=== PATIENT | female | born 1985 ===

== ENCOUNTER 2019-08-08 15:27 | Outpatient (CLI) | payer OTHER ==
[~2019-08-08] VITALS: Ht 157.5 cm; Wt 93.6 kg
[2019-08-08 16:07] LABS: PROTEIN/CREATININE RATIO,URINE < 242 (0-200); TOTAL PROTEIN,URINE RANDOM < 5 mg/dL (0-12)
[2019-08-08 16:25] LABS: BASOPHILS # (AUTO) 0.05 x10^3/uL (0-0.1); BASOPHILS % (AUTO) 1 % (0-1); EOSINOPHILS # (AUTO) 0.09 x10^3/uL (0-0.4); EOSINOPHILS % (AUTO) 1 % (1-7); LYMPHOCYTES # (AUTO) 1.97 x10^3/uL (1-3.4); LYMPHOCYTES % (AUTO) 21 % (22-44); MD NO; MEAN CORPUSCULAR HEMOGLOBIN 29.3 pg (27.0-34.8); MEAN CORPUSCULAR HGB CONC 33.2 g/dL (32.4-35.8); MEAN CORPUSCULAR VOLUME 88.4 fL (80-100); MEAN PLATELET VOLUME 8.9 fL (7.4-10.4); MONOCYTES # (AUTO) 0.64 x10^3/uL (0.2-0.8); MONOCYTES % (AUTO) 7 % (2-9); NEUTROPHILS # (AUTO) 6.56 x10^3/uL (1.8-6.8); NEUTROPHILS % (AUTO) 71 % (42-75); PLATELET COUNT 264 x10^3/uL (130-400); RED BLOOD COUNT 4.61 x10^6/uL (3.82-5.3); RED CELL DISTRIBUTION WIDTH 15.2 % (9.6-15.2)
[2019-08-08 16:32] LABS: ALANINE AMINOTRANSFERASE 18 U/L (12-78); ALBUMIN 2.5 g/dL (3.4-5.0); ANION GAP 8 mmol/L (5-15); CALCIUM 8.6 mg/dL (8.5-10.1); CHLORIDE 111 mmol/L (98-107); CREATININE 0.99 mg/dL (0.55-1.02)
[2019-08-08 16:34] LABS: ALKALINE PHOSPHATASE 152 U/L (45-117); BILIRUBIN,TOTAL 0.2 mg/dL (0.2-1.0); TOTAL PROTEIN 6.8 g/dL (6.4-8.2)
[2019-08-08 16:40] LABS: BILIRUBIN, DIRECT < 0.1 mg/dL (0.1-0.2)
[2019-08-08 17:03] LABS: MICROSCOPIC NOT IND
== END 2019-08-08 17:00 | disposition home or self-care (01) ==
LOC: LDOP 15:27
PROVIDERS: ATTEND Obstetrics & Gynecology
DX: O13.3 Gestational [pregnancy-induced] hypertension without significant proteinuria, third trimester (principal); Z3A.38 38 weeks gestation of pregnancy
CPT/HCPCS: 36415; 59025; 80053; 81003; 82248; 82570; 84156; 84550; 85025; 99211; G0463

== ENCOUNTER 2019-08-09 06:16 | Inpatient (IN) | payer OTHER ==
[~2019-08-09] VITALS: Ht 157.5 cm; Wt 93.4 kg
[2019-08-09 04:26] VITALS: BP 119/76
[2019-08-09] MEDS ORDERED: LACTATED RINGERS 1,000 ML IV SCH (06:24)
[2019-08-09] MEDS ORDERED: METOCLOPRAMIDE 5 MG/ML, 2ML IV ONE (06:30)
[2019-08-09] MEDS ORDERED: SODIUM CITRATE/CITRIC ACID 30 ML UDC PO ONE (06:30)
[2019-08-09] MEDS ORDERED: LACTATED RINGERS 1,000 ML IVBOLUS ONE (06:30)
[2019-08-09] MEDS ORDERED: OXYTOCIN 30U/ 0.9% NaCL 500ML 500 ML ONE ×2 (06:42→10:00)
[2019-08-09] MEDS ORDERED: METOCLOPRAMIDE 5 MG/ML, 2ML ONE (06:47)
[2019-08-09] MEDS ORDERED: SODIUM CITRATE/CITRIC ACID 30 ML UDC ONE (06:47)
[2019-08-09] MEDS ORDERED: NEWBORN KIT ONE (06:47)
[2019-08-09] MEDS ORDERED: FENTANYL PF 100 MCG/2ML ONE ×3 (06:58→09:13)
[2019-08-09] MEDS ORDERED: ONDANSETRON 2MG/ML, 2ML IVPush PRN (07:00)
[2019-08-09] MEDS ORDERED: hydrALAzine 20 MG/ML, 1ML IV PRN (07:00)
[2019-08-09] MEDS ORDERED: HYDROcodone/APAP 7.5-325MG/15ML UDC PO PRN (07:00)
[2019-08-09] MEDS ORDERED: PROMETHAZINE 25 MG/ML, 1ML IV PRN (07:00)
[2019-08-09] MEDS ORDERED: METOPROLOL 1 MG/ML, 5ML IV PRN (07:00)
[2019-08-09] MEDS ORDERED: EPHEDRINE 50 MG/ML, 1ML IVPush PRN (07:00)
[2019-08-09] MEDS ORDERED: HYDROmorphone 2 MG/ML, 1ML IVPush PRN (07:00)
[2019-08-09] MEDS ORDERED: OXYcodone 5 MG/5 ML ORAL.SOL UDC PO PRN (07:00)
[2019-08-09] MEDS ORDERED: MEPERIDINE/PF 25MG/0.5ML IVPush PRN (07:00)
[2019-08-09] MEDS ORDERED: ALBUTEROL SULFATE 2.5 MG/3 ML NPPB PRN (07:00)
[2019-08-09] MEDS ORDERED: LABETALOL 5MG/ML, 20ML IV PRN (07:00)
[2019-08-09] MEDS ORDERED: SUCCINYLCHOLINE 20 MG/ML, 10ML ONE (07:19)
[2019-08-09] MEDS ORDERED: CEFAZOLIN 1,000 MG ONE (08:10)
[2019-08-09] MEDS ORDERED: OXYTOCIN 10 UNITS/ML, 1ML ONE ×2 (08:10→08:18)
[2019-08-09] MEDS ORDERED: EPINEPHRINE 1 MG/ML, 1ML ONE (08:10)
[2019-08-09] MEDS ORDERED: PROPOFOL 10 MG/ML, 20ML ONE (08:16)
[2019-08-09] MEDS: LACTATED RINGERS 1,000 ML IV SCH ×4 (08:42→18:42)
[2019-08-09] MEDS ORDERED: ONDANSETRON 2MG/ML, 2ML IV PRN (09:00)
[2019-08-09] MEDS ORDERED: OXYcodone IR 5MG TABLET PO PRN (09:00)
[2019-08-09] MEDS ORDERED: SIMETHICONE 80 MG CHEW TAB PO PRN (09:00)
[2019-08-09] MEDS ORDERED: CALCIUM CARBONATE 500 MG TAB.CHEW PO PRN (09:00)
[2019-08-09] MEDS: PRENATAL VIT/IRON/FA 1 EACH TABLET PO SCH (09:00)
[2019-08-09] MEDS ORDERED: MORPHINE SULFATE 4 MG/ML, 1ML IVPush PRN (09:00)
[2019-08-09] MEDS ORDERED: MISOPROSTOL 200 MCG TABLET PR PRN (09:00)
[2019-08-09] MEDS: FENTANYL PF 100 MCG/2ML IV PRN ×2 (09:18→09:27)
[2019-08-09] MEDS ORDERED: HYDROcodone/APAP 7.5-325MG/15ML UDC ONE (09:45)
[2019-08-09] MEDS: PLEASE ENTER HEIGHT AND WEIGHT MC SCH ×2 (10:00→18:00)
[2019-08-09] MEDS: OXYTOCIN 30U/ 0.9% NaCL 500ML 500 ML IV SCH ×2 (10:19→18:42)
[2019-08-09 10:30] VITALS: BP 112/72
[2019-08-09] MEDS ORDERED: PLEASE ENTER HEIGHT AND WEIGHT MC SCH (11:00)
[2019-08-09] MEDS: KETOROLAC 30 MG/1 ML IV SCH ×3 (15:28→21:05)
[2019-08-09 15:55] VITALS: BP 104/69
[2019-08-09 16:59] LABS: BASOPHILS # (AUTO) 0.05 x10^3/uL (0-0.1); BASOPHILS % (AUTO) 0 % (0-1); EOSINOPHILS # (AUTO) 0.05 x10^3/uL (0-0.4); EOSINOPHILS % (AUTO) 0 % (1-7); LYMPHOCYTES # (AUTO) 2.07 x10^3/uL (1-3.4); LYMPHOCYTES % (AUTO) 16 % (22-44); MD NO; MEAN CORPUSCULAR HEMOGLOBIN 29.4 pg (27.0-34.8); MEAN CORPUSCULAR HGB CONC 33.5 g/dL (32.4-35.8); MEAN CORPUSCULAR VOLUME 87.8 fL (80-100); MEAN PLATELET VOLUME 8.7 fL (7.4-10.4); MONOCYTES # (AUTO) 0.73 x10^3/uL (0.2-0.8); MONOCYTES % (AUTO) 5 % (2-9); NEUTROPHILS # (AUTO) 10.52 x10^3/uL (1.8-6.8); NEUTROPHILS % (AUTO) 78 % (42-75); PLATELET COUNT 216 x10^3/uL (130-400); RED BLOOD COUNT 4.09 x10^6/uL (3.82-5.3); RED CELL DISTRIBUTION WIDTH 15.4 % (9.6-15.2)
[2019-08-09] MEDS: OXYcodone/APAP 5/325MG TABLET PO PRN ×2 (18:25→22:41)
[2019-08-09 20:10] VITALS: BP 105/69
[2019-08-10 00:15] VITALS: BP_SYST 107; BP_SYST 109; BP_DIAS 69; BP_DIAS 76
[2019-08-10] MEDS: LACTATED RINGERS 1,000 ML IV SCH ×5 (00:42→16:42)
[2019-08-10] MEDS: KETOROLAC 30 MG/1 ML IV SCH (02:46)
[2019-08-10] MEDS: OXYcodone/APAP 5/325MG TABLET PO PRN ×4 (02:47→20:54)
[2019-08-10 04:25] VITALS: BP 119/76
[2019-08-10] MEDS: OXYTOCIN 30U/ 0.9% NaCL 500ML 500 ML IV SCH ×2 (04:42→14:42)
[2019-08-10 07:31] VITALS: BP 122/78
[2019-08-10] MEDS: DOCUSATE 100 MG CAPSULE PO PRN ×2 (07:49→19:14)
[2019-08-10] MEDS: PRENATAL VIT/IRON/FA 1 EACH TABLET PO SCH (07:49)
[2019-08-10] MEDS: IBUPROFEN 800 MG TABLET PO PRN ×2 (09:12→18:41)
[2019-08-10 19:00] VITALS: BP 105/65
[2019-08-11] MEDS: OXYTOCIN 30U/ 0.9% NaCL 500ML 500 ML IV SCH (00:42)
[2019-08-11] MEDS: LACTATED RINGERS 1,000 ML IV SCH ×2 (00:42)
[2019-08-11] MEDS: OXYcodone/APAP 5/325MG TABLET PO PRN ×3 (00:49→11:37)
[2019-08-11] MEDS: IBUPROFEN 800 MG TABLET PO PRN ×2 (02:59→11:37)
[2019-08-11] MEDS ORDERED: IBUP-1222 PO (06:53)
[2019-08-11] MEDS ORDERED: OXYC-302 PO (06:53)
[2019-08-11] MEDS ORDERED: DOCU-131 PO (06:54)
[2019-08-11 07:15] VITALS: BP 113/77
[2019-08-11] MEDS: DOCUSATE 100 MG CAPSULE PO PRN (07:30)
[2019-08-11] MEDS: PRENATAL VIT/IRON/FA 1 EACH TABLET PO SCH (07:31)
== END 2019-08-11 13:40 | disposition home or self-care (01) | DRG 788 ==
LOC: LDOP 06:16 → LDIP 06:30 → 2NW 11:27
PROVIDERS: ADMIT Obstetrics & Gynecology; ATTEND Obstetrics & Gynecology
PROC: 10D00Z1 Extraction of Products of Conception, Low, Open Approach (ICD-10-PCS; principal; 2019-08-11)
DX: O34.211 Maternal care for low transverse scar from previous cesarean delivery (principal); O32.1XX0 Maternal care for breech presentation, not applicable or unspecified; O69.81X0 Labor and delivery complicated by cord around neck, without compression, not applicable or unspecified; O75.89 Other specified complications of labor and delivery; M41.9 Scoliosis, unspecified; O24.420 Gestational diabetes mellitus in childbirth, diet controlled; Z37.0 Single live birth; Z3A.38 38 weeks gestation of pregnancy; Z83.3 Family history of diabetes mellitus
CPT/HCPCS: 36415; 82803; 85025; 86592; 86850; 86900; G0378; J0171; J0690; J1885; J2704; J3010; J0330; J2590; J2765; J7120